=== PATIENT | female | born 1945 | race Caucasian/White ===

== ENCOUNTER 2017-05-10 08:17 | Day surgery (SDC) | payer OTHER ==
[~2017-05-10] VITALS: Ht 170.2 cm; Wt 105.7 kg
[~2017-05-10 08:17] MED LIST: AREDS PO; ASPIRIN81 M2 PO; EXTRA STRENGTH500 M1 PO; KLOR-CON M2020 MEQ PO; LANOXIN125 MCG PO; LANTUS 3 M100 UNITS1 SC; LASIX20 MG PO; NOVOLOG PE100 UNITS/ SC; PREDNISONE10 MG PO; SYNTHROID100 MCG PO; TUMS500 MG PO; VERAPAMIL HCL240 MG PO; VITAMIN B125000 MCG PO; VITAMIN C500 MG PO; VITAMIN D31000 UNIT PO; XANAX0.25 MG PO; XARELTO15 MG PO
[2017-05-10 09:04] VITALS: BP 126/70
[2017-05-10 18:11] LABS: HEMATOCRIT 43.2 % (36.0-46.0); MCH 30.4 PG (29.0-34.0); MCHC 32.4 G/DL (30.0-36.0); MCV 93.7 FL (83-99); PLATELET COUNT 223 K/uL (156-360); RBC DIS.WIDTH-CV 15.9 % (11.8-14.6); RBC DIS.WIDTH-SD 55.1 % (39-53); RED BLOOD COUNT 4.61 M/uL (3.80-5.20); WHITE BLOOD COUNT 8.7 K/uL (4.1-10.2)
[2017-05-10 18:33] LABS: CHLORIDE 100 MEQ/L (99-109); CREATININE 0.8 MG/DL (0.6-1.3); GFR ESTIMATE (CALCULATED) > 59 mL/min/; GLUCOSE 220 mg/dL (70-99); POTASSIUM 4.1 MEQ/L (3.7-5.4); SODIUM 139 MEQ/L (136-147); UREA NITROGEN (BUN) 11 mg/dL (9-23)
[2017-05-10 20:10] VITALS: BP 132/80
[2017-05-11 00:21] VITALS: BP 113/66
[2017-05-11 04:15] VITALS: BP 115/68
[2017-05-11 06:52] LABS: HEMATOCRIT 42.5 % (36.0-46.0); HEMOGLOBIN 13.6 G/DL (11.9-15.5); MCH 30.4 PG (29.0-34.0); MCV 94.9 FL (83-99); PLATELET COUNT 212 K/uL (156-360); RBC DIS.WIDTH-CV 15.8 % (11.8-14.6); RBC DIS.WIDTH-SD 55.2 % (39-53); RED BLOOD COUNT 4.48 M/uL (3.80-5.20); WHITE BLOOD COUNT 13.2 K/uL (4.1-10.2)
[2017-05-11 07:19] LABS: CHLORIDE 102 MEQ/L (99-109); CREATININE 0.9 MG/DL (0.6-1.3); GFR ESTIMATE (CALCULATED) > 59 mL/min/; POTASSIUM 3.9 MEQ/L (3.7-5.4); SODIUM 141 MEQ/L (136-147); UREA NITROGEN (BUN) 11 mg/dL (9-23)
[2017-05-11 07:27] VITALS: BP 140/98
[2017-05-11 07:32] LABS: GLUCOSE 120 mg/dL (70-99)
== END 2017-05-11 10:36 | disposition home or self-care (01) ==
LOC: SDC 08:17 → 2SOUTH 12:15 → ENRESERV 12:56 → 2EAST 15:14 → SDC 15:36 → 2EAST 05-11 10:36
PROVIDERS: Obstetrics & Gynecology Gynecologic Oncology
DX: C51.0 Malignant neoplasm of labium majus (principal); I48.1 Persistent atrial fibrillation; D68.9 Coagulation defect, unspecified; J84.89 Other specified interstitial pulmonary diseases; E11.9 Type 2 diabetes mellitus without complications; N28.9 Disorder of kidney and ureter, unspecified; Z95.0 Presence of cardiac pacemaker; Z90.49 Acquired absence of other specified parts of digestive tract; D50.0 Iron deficiency anemia secondary to blood loss (chronic); I10 Essential (primary) hypertension; Z79.01 Long term (current) use of anticoagulants; Z80.6 Family history of leukemia; Z80.8 Family history of malignant neoplasm of other organs or systems; Z80.3 Family history of malignant neoplasm of breast; Z80.0 Family history of malignant neoplasm of digestive organs; Z79.4 Long term (current) use of insulin
CPT/HCPCS: 80048; 82948; 85027; 86850; 86900; 86901; 86920; 88307; 88341 TC; 88342 TC; G0378; J0330; J0690; J1100; J1170; J1650; J1815; J1885; J2250; J2405; J2710; J2765; J3010; J7120